=== PATIENT | female | born 1975 | race Caucasian/White ===

== ENCOUNTER → 2020-04-22 | Outpatient (CLI) | payer OTHER, SELFPAY ==
[2020-04-22 08:15] VITALS: BMI 23.9
--- NOTE | 2020-04-22 08:40 | EMB_PTH ---
PATIENT: AUSTIN BARRAZA LOC: [facility] U#:[id number] AGE/SX: 44/F ROOM: RE04/22/[address]: LUCIAN Esparza : 1975 BED: DIS: 04/22/2020 SPEC #: [id number] RECD: 04/22/20 12:34 STATUS: HUEY REMae #: [id number] KEVIN: 04/22/20 08:[address]: Melba Zayas NP DEPT: SURGICAL PATHOLOGY RECD BY: Nataly Stein ENTERED: 04/22/20 13:36 SP TYPE: ENDOM BX/C FAISAL DR: SOLE Valle Tissues: Endometrium, NOS Procedures: Surgery Specimen Level IV HEADER OPERATION: Endometrial biopsy PRE-OP DIAGNOSIS: Abnormal uterine bleeding TISSUE SUBMITTED: Endometrial biopsy MICROSCOPIC DIAGNOSIS Endometrial biopsy: Proliferative endometrium. SJ:mili 04/26/2020 MICROSCOPIC DESCRIPTION Slides are reviewed. GROSS DESCRIPTION Received is one container labeled with the patient's name and not further designated. The specimen consists of multiple irregular and elongated fragments of light mendoza soft tissue that in aggregate measure 2.5 x 1.8 x 0.1 cm. The specimen is totally submitted in one cassette. / AM:mili 04/22/20 TC:4 CPT: [id number]
== END | disposition home or self-care (01) ==
LOC: LABSPEC 13:00
PROVIDERS: PCP Physician Assistant; Referring Provider Nurse Practitioner Women's Health; Visit Provider Nurse Practitioner Women's Health
DX: N93.9 Abnormal uterine and vaginal bleeding, unspecified (principal)
CPT/HCPCS: 88305

== ENCOUNTER → 2020-05-31 15:00 | Outpatient (CLI) | payer OTHER, SELFPAY ==
[2020-04-22 08:15] VITALS: BMI 23.9
--- NOTE | 2020-05-31 15:09 | US_ITS ---
STUDY: ULTRASOUND OF THE FEMALE PELVIS - COMPLETE REASON FOR EXAM: Female, 44 years old. Pelvic pain and fullness. LMP: 05/24/2020 TECHNIQUE: Transabdominal and Transvaginal TECHNICAL QUALITY: Adequate. COMPARISON: None. FINDINGS: The uterus is anteverted and is tilted to the right side of the pelvis. The uterus measures 8.3 x 4.9 x 4.2 cm. Normal uterine cervix. The endometrium measures 3 mm in thickness, and is hyperechoic. There is no demonstrated endometrial mass. There is no demonstrated myometrial mass. I.U.D. - The patient does not have an I.U.D. The right ovary is visualized. The right ovary measures 2.1 x 0.7 x 1.2 cm. There is no right ovarian cyst or ovarian mass. There is no visualized right adnexal mass or complex lesion. There is normal arterial and normal venous vascularity. The left ovary is visualized. The left ovary measures 5.1 x 3.8 x 3.5 cm. There is a simple 4.7 cm cyst.. There is normal arterial and normal venous vascularity. There is minimal fluid in the cul-de-sac, likely physiologic. The bladder is sonographically normal US/Pelvic (Non ) IMPRESSION: Sonographically normal uterus and right ovary Large simple 4.7 cm left ovarian cyst. Follow-up ultrasound in 4-6 weeks recommended to ensure resolution Electronically Signed: Rafal Boston MD at 10:51 EST , Service support ,
--- NOTE | 2020-05-31 15:09 | US_ITS ---
STUDY: ULTRASOUND OF THE FEMALE PELVIS - COMPLETE REASON FOR EXAM: Female, 44 years old. Pelvic pain and fullness. LMP: 05/24/2020 TECHNIQUE: Transabdominal and Transvaginal TECHNICAL QUALITY: Adequate. COMPARISON: None. FINDINGS: The uterus is anteverted and is tilted to the right side of the pelvis. The uterus measures 8.3 x 4.9 x 4.2 cm. Normal uterine cervix. The endometrium measures 3 mm in thickness, and is hyperechoic. There is no demonstrated endometrial mass. There is no demonstrated myometrial mass. I.U.D. - The patient does not have an I.U.D. The right ovary is visualized. The right ovary measures 2.1 x 0.7 x 1.2 cm. There is no right ovarian cyst or ovarian mass. There is no visualized right adnexal mass or complex lesion. There is normal arterial and normal venous vascularity. The left ovary is visualized. The left ovary measures 5.1 x 3.8 x 3.5 cm. There is a simple 4.7 cm cyst.. There is normal arterial and normal venous vascularity. There is minimal fluid in the cul-de-sac, likely physiologic. The bladder is sonographically normal US/Transvaginal Non- IMPRESSION: Sonographically normal uterus and right ovary Large simple 4.7 cm left ovarian cyst. Follow-up ultrasound in 4-6 weeks recommended to ensure resolution Electronically Signed: Rafal Boston MD at 10:51 EST , Service support ,
== END ==
PROVIDERS: PCP Physician Assistant; Referring Provider Nurse Practitioner Women's Health; Visit Provider Nurse Practitioner Women's Health
DX: N83.201 Unspecified ovarian cyst, right side (principal); N83.202 Unspecified ovarian cyst, left side; N92.6 Irregular menstruation, unspecified
CPT/HCPCS: 76830; 76856

== ENCOUNTER → 2020-07-09 15:17 | Outpatient (CLI) | payer OTHER, SELFPAY ==
[2020-04-22 08:15] VITALS: BMI 23.9
--- NOTE | 2020-07-09 15:22 | US_ITS ---
STUDY: ULTRASOUND OF THE FEMALE PELVIS - COMPLETE REASON FOR EXAM: Female, 44 years old. Follow-up left ovarian cyst. LMP: 06/13/2020. TECHNIQUE: Transvaginal TECHNICAL QUALITY: Adequate. COMPARISON: 05/31/2020. FINDINGS: The uterus is anteverted and is tilted to the right side of the pelvis. The uterus measures 9.1 x 4.8 x 4.3 cm. There is a Nabothian cyst of the cervix. The endometrium measures 5 mm in thickness, and is hyperechoic. There is no demonstrated endometrial mass. There is no demonstrated myometrial mass. I.U.D. - The patient does not have an I.U.D. The right ovary is visualized. The right ovary measures 2.6 x 1.8 x 2.0 cm. There is no right ovarian cyst or ovarian mass. There is no visualized right adnexal mass or complex lesion. There is normal arterial and normal venous vascularity. The left ovary is visualized. The left ovary measures 2.1 x 2.3 x 1.4 cm. There is a 1.1 x 1.0 x 1.1 cm ovarian cyst/follicle. There is no visualized left adnexal mass or complex lesion. There is normal arterial and normal venous vascularity. There is no fluid in the cul-de-sac. The pre void volume of the bladder was 132 ml. The urinary bladder is grossly normal. Polycystic ovary disease: No. US/Pelvic (Non ) IMPRESSION: 1. Normal uterus and right ovary. 2. Marked decrease in the left ovarian cyst when compared to prior study. This now measures approximately 1 cm in diameter Electronically Signed: Herve Vora DO at 16:44 EDT Tel [phone], Service support ,
--- NOTE | 2020-07-09 15:22 | US_ITS ---
STUDY: ULTRASOUND OF THE FEMALE PELVIS - COMPLETE REASON FOR EXAM: Female, 44 years old. Follow-up left ovarian cyst. LMP: 06/13/2020. TECHNIQUE: Transvaginal TECHNICAL QUALITY: Adequate. COMPARISON: 05/31/2020. FINDINGS: The uterus is anteverted and is tilted to the right side of the pelvis. The uterus measures 9.1 x 4.8 x 4.3 cm. There is a Nabothian cyst of the cervix. The endometrium measures 5 mm in thickness, and is hyperechoic. There is no demonstrated endometrial mass. There is no demonstrated myometrial mass. I.U.D. - The patient does not have an I.U.D. The right ovary is visualized. The right ovary measures 2.6 x 1.8 x 2.0 cm. There is no right ovarian cyst or ovarian mass. There is no visualized right adnexal mass or complex lesion. There is normal arterial and normal venous vascularity. The left ovary is visualized. The left ovary measures 2.1 x 2.3 x 1.4 cm. There is a 1.1 x 1.0 x 1.1 cm ovarian cyst/follicle. There is no visualized left adnexal mass or complex lesion. There is normal arterial and normal venous vascularity. There is no fluid in the cul-de-sac. The pre void volume of the bladder was 132 ml. The urinary bladder is grossly normal. Polycystic ovary disease: No. US/Transvaginal Non- IMPRESSION: 1. Normal uterus and right ovary. 2. Marked decrease in the left ovarian cyst when compared to prior study. This now measures approximately 1 cm in diameter Electronically Signed: Herve Vora DO at 16:44 EDT Tel [phone], Service support ,
== END ==
PROVIDERS: PCP Physician Assistant; Referring Provider Nurse Practitioner Women's Health; Visit Provider Nurse Practitioner Women's Health
DX: N83.201 Unspecified ovarian cyst, right side (principal); N83.202 Unspecified ovarian cyst, left side
CPT/HCPCS: 76830; 76856

== ENCOUNTER 2021-07-27 15:40 | Outpatient (CLI) | payer OTHER, SELFPAY ==
--- NOTE | 2021-07-27 15:46 | BI_ITS ---
MAMMOGRAPHY - BILATERAL SCREENING REASON FOR EXAM: Female, 45 years old. Routine annual screening examination. PERTINENT HISTORY: Non-contributory. TECHNIQUE: Digital bilateral breast antoine (3D mammographic acquisition) in the CC and MLO projections. 2-D mediolateral oblique (MLO) and craniocaudad (CC) views of both breasts were obtained. CAD: Full Field Digital Mammography with Computer Added Detection was performed. COMPARISON: Comparison is made with prior outside examination dated 11/24/2019. FINDINGS: Breast Composition: The breasts are extremely dense, which lowers the sensitivity of mammography. There are no dominant masses or suspicious calcifications. No other significant abnormalities are identified. There has been no significant change since the prior study. BI/SCRN MAMM (CAD)W/ANTOINE BILAT IMPRESSION: Stable bilateral screening mammogram. Yearly follow-up mammogram recommended. (A) ASSESSMENT CATEGORY: BIRADS Category 1: Negative. A letter regarding these results will be sent to the patient by the facility within 30 days. Approximately 10% of breast cancers are not detected by mammography. A normal mammogram should not delay biopsy of a clinically suspicious abnormality. [id number] Electronically Signed: Shaq Bess MD at 8:08 EDT ,
== END 2021-07-27 23:59 | disposition home or self-care (01) ==
PROVIDERS: PCP Physician Assistant; Visit Provider Nurse Practitioner Women's Health
DX: Z12.31 Encounter for screening mammogram for malignant neoplasm of breast (principal)
CPT/HCPCS: 77063; 77067

== ENCOUNTER 2021-08-02 09:46 | Outpatient (CLI) | payer OTHER, SELFPAY ==
[2021-08-08 14:26] LABS: HPV APTIMA, High Risk Negative (Negative)
== END 2021-08-02 23:59 | disposition home or self-care (01) ==
LOC: LABSPEC 09:47
PROVIDERS: PCP Physician Assistant; Visit Provider Nurse Practitioner Women's Health
DX: Z12.4 Encounter for screening for malignant neoplasm of cervix (principal)
CPT/HCPCS: 87624; 88175; G0145

== ENCOUNTER → 2022-07-28 | Outpatient (CLI) | payer OTHER, SELFPAY ==
--- NOTE | 2022-07-28 12:49 | BI_ITS ---
MAMMOGRAPHY - BILATERAL SCREENING REASON FOR EXAM: Female, 46 years old. Routine annual screening examination. PERTINENT HISTORY: Non-contributory. TECHNIQUE: Digital bilateral breast antoine (3D mammographic acquisition) in the CC and MLO projections. 2-D mediolateral oblique (MLO) and craniocaudad (CC) views of both breasts were obtained. CAD: Full Field Digital Mammography with Computer Added Detection was performed. COMPARISON: Comparison is made with prior study July 27, 2021. FINDINGS: Breast Composition: The breasts are extremely dense, which lowers the sensitivity of mammography. There are no dominant masses or suspicious calcifications. No other significant abnormalities are identified. There has been no significant change since the prior study. BI/SCRN MAMM (CAD)W/ANTOINE BILAT IMPRESSION: Stable bilateral screening mammogram. Yearly follow-up mammogram recommended. (A) ASSESSMENT CATEGORY: BIRADS Category 1: Negative. A letter regarding these results will be sent to the patient by the facility within 30 days. Approximately 10% of breast cancers are not detected by mammography. A normal mammogram should not delay biopsy of a clinically suspicious abnormality. [id number] Electronically Signed: Shaq Bess MD at 14:14 EDT ,
== END | disposition home or self-care (01) ==
PROVIDERS: PCP Physician Assistant; Referring Provider Nurse Practitioner Women's Health; Visit Provider Nurse Practitioner Women's Health
DX: Z12.31 Encounter for screening mammogram for malignant neoplasm of breast (principal)
CPT/HCPCS: 77063; 77067

== ENCOUNTER → 2023-10-24 | Outpatient (CLI) | payer OTHER, SELFPAY ==
--- NOTE | 2023-10-24 13:03 | BI_ITS ---
MAMMOGRAPHY - BILATERAL SCREENING 3-D TOMOSYNTHESIS REASON FOR EXAM: Female, 48 years old. Screening for breast cancer PERTINENT HISTORY: No significant family history. TECHNIQUE: 2-D mammograms and 3-D Tomosynthesis of the breast (s) were performed. CAD was performed. COMPARISON: 07/28/2022 FINDINGS: The breast composition is Extermely dense tissue. Scattered benign calcifications are seen. No dense spiculated masses or suspicious microcalcifications are identified. No architectural distortion is identified. There is no skin thickening or retraction. There has been no significant change since the prior study. BI/SCRN MAMM (CAD)W/ANTOINE BILAT IMPRESSION: No mammographic signs of malignancy. Routine yearly mammograms recommended. ASSESSMENT CATEGORY: BIRADS Category 1: Negative. A letter regarding these results will be sent to the patient by the facility within 30 days. FOLLOW UP RECOMMENDATION: Yearly follow up mammogram recommended. (A) Approximately 10% of breast cancers are not detected by mammography. A normal mammogram should not delay biopsy of a clinically suspicious abnormality. Electronically Signed: Sudhir Walker MD at 19:00 EDT ,
== END | disposition home or self-care (01) ==
PROVIDERS: PCP Physician Assistant; Referring Provider Nurse Practitioner Family; Visit Provider Nurse Practitioner Family
DX: Z12.31 Encounter for screening mammogram for malignant neoplasm of breast (principal)
CPT/HCPCS: 77063; 77067

== ENCOUNTER → 2024-10-28 | Outpatient (CLI) | payer OTHER, SELFPAY ==
--- NOTE | 2024-10-28 12:00 | BI_ITS ---
EXAM: SCRN MAMM (CAD)W/ANTOINE BILAT DATE: 10/28/2024 CLINICAL HISTORY: F, Age 49 y/o , SCREEN FOR BREAST CANCER No family history. TECHNIQUE: SCRN MAMM (CAD)W/ANTOINE BILAT COMPARISON: Prior exam(s) dated October 24, 2023.. FINDINGS: TISSUE DENSITY: The breasts are extremely dense, which lowers the sensitivity of mammography. Bilateral Breast Mammographic Findings: No significant masses, calcifications or other abnormalities are identified. No suspicious masses, areas of developing architectural distortion, or suspicious calcifications. There has been no significant interval change. BI/SCRN MAMM (CAD)W/ANTOINE BILAT IMPRESSION: Stable examination OVERALL FINAL ASSESSMENT BI-RADS 1: NEGATIVE. RECOMMEND ANNUAL MAMMOGRAPHIC SCREENING. RECOMMENDATION: Routine annual follow-up in 1 Year A letter with findings and recommendations will be mailed to the patient. Reading Location: [place] [id number]
== END | disposition home or self-care (01) ==
LOC: OPBI 11:59
PROVIDERS: PCP Physician Assistant; Referring Provider Nurse Practitioner Family; Visit Provider Nurse Practitioner Family
DX: Z12.31 Encounter for screening mammogram for malignant neoplasm of breast (principal)
CPT/HCPCS: 77063; 77067